=== PATIENT | female | born 1990 | race Caucasian/White ===

== ENCOUNTER 2019-02-09 23:09 | Emergency (ER) | payer OTHER ==
[~2019-02-09] VITALS: Ht 167.6 cm; Wt 72.6 kg
[~2019-02-09 23:09] MED LIST: BENTYL 20 MG TA20 M1 PO; HYDROCODONE-AP1 EAC6 PO; IBUPROFEN 200200 M1 PO; IBUPROFEN 800800 M1 PO; ONDANSETRON HCL4 M2 PO; ZOFRAN ODT4 MG PO; ZOFRAN2 MG/1 ML PO
[2019-02-09 23:18] VITALS: BP 143/71
[2019-02-09] MEDS ORDERED: CLONAZEPAM 0.50.5 M1 PO (23:24)
[2019-02-09] MEDS ORDERED: EFFEXOR 5050 MG/1 T1 PO (23:25)
[2019-02-09] MEDS ORDERED: TRILEPTAL150 MG PO (23:25)
[2019-02-09] MEDS ORDERED: TRAMADOL 50 MG50 MG PO (23:47)
== END 2019-02-09 23:53 | disposition home or self-care (01) ==
LOC: M.ERS 23:09
DX: S80.12XA Contusion of left lower leg, initial encounter (principal); W50.0XXA Accidental hit or strike by another person, initial encounter; Y92.89 Other specified places as the place of occurrence of the external cause; Y93.89 Activity, other specified; Y99.8 Other external cause status